=== PATIENT | female | born 1990 | race Caucasian/White ===

== ENCOUNTER 2019-09-30 11:39 | Inpatient (IN) | payer BC ==
[2019-09-30] MEDS ORDERED: Lactated Ringers 1,000 ML IV SCH (12:15)
[2019-09-30] MEDS ORDERED: Nalbuphine 10 MG/ML Syringe IVPUSH PRN (12:15)
[2019-09-30] MEDS ORDERED: Oxytocin/Lactated Ringers 10 UNIT/1,000 ML BAG IV SCH ×2 (12:15→12:30)
[2019-09-30] MEDS ORDERED: Sodium Chloride 0.9% 10 ML Syringe FLUSH PRN (12:15)
[2019-09-30] MEDS ORDERED: Ondansetron 4 MG/2 ML SDV IVPUSH PRN (12:15)
--- NOTE | 2019-09-30 12:15 | PCM.LDHP ---
L&D History of Present Illness - General Date of Service: 09/30/19 Admit Problem/Dx: Admission Diagnosis/Problem Admission Diagnosis/Problem Source of Information: Patient History Limitations: Reports: No Limitations - History of Present Illness Introduction:: Patient is a 29 y/o at 36 6/7 wks who presents with SROM. Occurred at about 0308-1699 this AM. Initially was small in amount. Since arriving in [place] has been larger in amount. Minimal contractions - Related Data Allergies/Adverse Reactions: Allergies Allergy/AdvReac Type Severity Reaction Status Date / Time cefprozil [From Cefzil] Allergy Hives Verified 09/30/19 13:16 Home Medications: Home Meds Hydroxyprogesterone Caproat/Pf [Hydroxyprogest 250 mg/ml Vial] 250 mg IM WEEKLY 09/30/19 [History] Vit/FA/Fe Fumarate/Se [ MTR] 1 tab PO DAILY 09/30/19 [History] Past Medical History Cardiovascular History: Reports: Other (See Below) (Raynaud's) [employer]ACHINE [employer] History: Reports: : 2 Para: 1 LMP (Approximate): - Past Surgical History Musculoskeletal Surgical History: Reports: Other (See Below) (fracture surgery) Social & Family History - Tobacco Use Smoking Status *Q: Never Smoker - Alcohol Use Alcohol Use History: No - Recreational Drug Use Recreational Drug Use: No H&P Review of Systems - Review of Systems: Review Of Systems: See Below General: Reports: No Symptoms Pulmonary: Reports: No Symptoms Cardiovascular: Reports: No Symptoms Gastrointestinal: Reports: No Symptoms Genitourinary: Reports: No Symptoms Musculoskeletal: Reports: No Symptoms Psychiatric: Reports: No Symptoms Neurological: Reports: No Symptoms L&D Exam - Exam Exam: See Below - OB Specific Contraction Intensity: Irritability Movement: Active Heart Tones: Present Heart Tones per Min: 140 Heart Rate (FHR) Variability: Moderate (6-25 bmp) Presentation: Vertex - Exam General: Alert, Oriented, Cooperative Lungs: Clear to Auscultation, Normal Respiratory Effort Cardiovascular: Regular Rate, Regular Rhythm GI/Abdominal Exam: Soft, Non-Tender Genitourinary: Normal external exam Extremities: Normal Inspection Skin: Warm, Dry, Intact - Patient Data Result Diagrams: 09/30/19 12:28 - Problem List (1) 36 weeks gestation of SNOMED Code(s): 24287484 ICD Code: Z3A.36 - 36 WEEKS GESTATION OF Status: Acute Current Visit: Yes (2) SROM (spontaneous rupture of membranes) SNOMED Code(s): 630301609 ICD Code: [id number] - Status: Acute Current Visit: Yes Problem List Initiated/Reviewed/Updated: Yes Assessment/Plan Comment:: * Labs done * GBS negative * SROM was about 8 hours ago. While patient previously wanted to defer pitocin now willing to consider * Pain management per patient preference * Anticipate
--- NOTE | 2019-09-30 17:58 | PCM.DEL ---
L & D Note - General Info Date of Service: 09/30/19 - Delivery Note Labor: Augmented by Oxytocin Delivery Outcome: Livebirth Delivery Method: Spontaneous Vaginal Delivery-Single Delivery Mode: Spontaneous Presentation: Left Occiput Anterior (RUTH) ((Pushing in hands and knees)) Nuchal Cord: None Anesthesia Type: None Amniotic Fluid Description: Clear Episiotomy Type: None Laceration: None Placenta: Intact, Spontaneous Cord: 3 Vessels Estimated Blood Loss: 100 Resuscitation Needed: Yes : Bulb Syringe, Stimulated, Warmed, [place] Used, Warmer Used Delivery Comments (Free Text/Narrative):: Patient found to be complete and began pushing in a hands/knees position. Baby delivered from RUTH presentation. No nuchal cord present. With gentle tractions shoulders and body delivered. handed up to maternal abdomen. Patient then turned to lithotomy. Cord clamped and cut. Cord blood obtained. Placenta allowed time to separate and expelled intact. Inspection of perineum showed no lacerations - General Info Date of Service: 09/30/19 - Patient Data Vitals - Most Recent: Last Vital Signs Temp 37.2 C 09/30/19 12:15 Pulse 83 09/30/19 12:15 Resp 14 09/30/19 12:15 BP 129/82 09/30/19 12:15 Pulse Ox Weight - Most Recent: 75.206 kg Lab Results Last 24 Hours: Laboratory Results - last 24 hr 09/30/19 09/30/19 09/30/19 Range/Units 12:25 12:28 12:28 WBC 10.47 H (3.98-10.04) K/mm3 RBC 4.39 (3.98-5.22) M/mm3 Hgb 13.0 (11.2-15.7) gm/dl Hct 39.4 (34.1-44.9) % MCV 89.7 (79.4-94.8) fl MCH 29.6 (25.6-32.2) pg MCHC 33.0 (32.2-35.5) g/dl RDW Std Deviation 42.9 (36.4-46.3) fL Plt Count 203 (182-369) K/mm3 MPV 9.7 (9.4-12.3) fl COVID-19 (RAJESH) Negative (NEGATIVE) Blood Type A POSITIVE Gel Antibody Screen Negative Med Orders - Current: Current Medications Oxytocin/Lactated Ringer's (Pitocin In Lr 10 Units/1,000 Ml) 10 unit in 1,000 mls @ 500 mls/hr IV .CONTINUOUS ORACIO Lactated Ringer's (Ringers, Lactated) 1,000 mls @ 100 mls/hr IV ASDIRECTED ORACIO Last Admin: 09/30/19 14:46 Dose: 100 mls/hr Documented by: Oxytocin/Lactated Ringer's (Pitocin In Lr 10 Units/1,000 Ml) 10 unit in 1,000 mls @ 12 mls/hr IV TITRATE ORACIO; Protocol Last Titration: 09/30/19 15:45 Dose: 4 munits/min, 24 mls/hr Documented by: Nalbuphine HCl (Nubain) 10 mg IVPUSH Q2H PRN PRN Reason: Pain Ondansetron HCl (Zofran) 4 mg IVPUSH Q4H PRN PRN Reason: Nausea/Vomiting Sodium Chloride (Saline Flush) 10 ml FLUSH ASDIRECTED PRN PRN Reason: Keep Vein Open - Problem List & Annotations (1) 36 weeks gestation of SNOMED Code(s): 54528459 Code(s): Z3A.36 - 36 WEEKS GESTATION OF Status: Acute Current Visit: Yes (2) SROM (spontaneous rupture of membranes) SNOMED Code(s): 051716607 Code(s): KOB8339 - Status: Acute Current Visit: Yes (3) Vaginal delivery SNOMED Code(s): 214255140 Code(s): O80 - ENCOUNTER FOR FULL-TERM UNCOMPLICATED DELIVERY Status: Acute Current Visit: Yes - Problem List Review Problem List Initiated/Reviewed/Updated: Yes - My Orders Last 24 Hours: My Active Orders 09/30/19 Lunch Regular Diet [DIET] 09/30/19 12:15 Patient Status [ADT] Routine Activity as Tolerated [RC] PFP Communication Order [RC] ASDIRECTED Heart Tones [RC] ASDIRECTED Notify Provider [RC] PFP Notify Provider [RC] PRN Peripheral IV Care [RC] . DIRECTED Vital Signs [RC] PER UNIT ROUTINE Lactated Ringers [Ringers, Lactated] 1,000 ml IV ASDIRECTED Nalbuphine [Nubain] 10 mg IVPUSH Q2H PRN Ondansetron [Zofran] 4 mg IVPUSH Q4H PRN Oxytocin/Lactated Ringers [Pitocin in LR 10 Units/1,000 ML] 10 unit in 1,000 ml IV .CONTINUOUS Sodium Chloride 0.9% [Saline Flush] 10 ml FLUSH ASDIRECTED PRN Electronic Heart Tones Ext w TOCO [WOMSER] Routine Electronic Heart Tones Internal [WOMSER] Per Unit Routine Peripheral IV Insertion Adult [OM.PC] Routine Resuscitation Status Routine 09/30/19 12:28 RAPID PLASMA REAGIN,RPR [CHEM] Routine 09/30/19 12:30 Oxytocin/Lactated Ringers [Pitocin in LR 10 Units/1,000 ML] 10 unit in 1,000 ml IV TITRATE 09/30/19 13:18 PATIENT RETYPE [BBK] Routine - Assessment Assessment:: PPD#0 - Plan Plan:: * Routine cares * Breast feeding * Discharge home in 1-2 days
[2019-09-30] MEDS ORDERED: Docusate Sodium 100 MG Cap PO PRN (19:47)
[2019-09-30] MEDS ORDERED: Benzocaine/Menthol 20%-0.5% Spray 56 GM Canister TOP PRN (19:47)
[2019-09-30] MEDS ORDERED: Witch Hazel Medicated Pads 40/Jar TOP PRN (19:47)
[2019-09-30] MEDS ORDERED: Acetaminophen 325 MG Tab PO PRN (19:47)
[2019-09-30] MEDS ORDERED: Ibuprofen 600 MG Tab PO PRN (19:47)
--- NOTE | 2019-10-01 01:45 | PCM.PNPP ---
- General Info Date of Service: 10/01/19 Functional Status: Reports: Pain Controlled, Tolerating Diet, Ambulating, Urinating - Review of Systems General: Reports: No Symptoms Pulmonary: Reports: No Symptoms Cardiovascular: Reports: No Symptoms Gastrointestinal: Reports: No Symptoms Genitourinary: Reports: No Symptoms Musculoskeletal: Reports: No Symptoms Neurological: Reports: No Symptoms Psychiatric: Reports: Other (tearful with baby in Level 2) - Patient Data Vital Signs - Most Recent: Last Vital Signs Temp 36.9 C 09/30/19 21:05 Pulse 89 09/30/19 21:05 Resp 16 09/30/19 21:05 BP 108/66 09/30/19 21:05 Pulse Ox 98 09/30/19 21:05 Weight - Most Recent: 75.206 kg I&O - Last 24 Hours: Intake & Output 09/30/19 09/30/19 10/01/19 14:59 22:59 06:59 Intake Total 1500 Balance 1500 Lab Results - Last 24 Hours: Laboratory Results - last 24 hr 09/30/19 09/30/19 09/30/19 Range/Units 12:25 12:28 12:28 WBC 10.47 H (3.98-10.04) K/mm3 RBC 4.39 (3.98-5.22) M/mm3 Hgb 13.0 (11.2-15.7) gm/dl Hct 39.4 (34.1-44.9) % MCV 89.7 (79.4-94.8) fl MCH 29.6 (25.6-32.2) pg MCHC 33.0 (32.2-35.5) g/dl RDW Std Deviation 42.9 (36.4-46.3) fL Plt Count 203 (182-369) K/mm3 MPV 9.7 (9.4-12.3) fl COVID-19 (RAJESH) Negative (NEGATIVE) Blood Type A POSITIVE Gel Antibody Screen Negative Med Orders - Current: Current Medications Acetaminophen (Tylenol) 650 mg PO Q4H PRN PRN Reason: mild pain or fever Benzocaine/Menthol (Dermoplast Pain Relief [place]) 0 gm TOP ASDIRECTED PRN PRN Reason: Perineal Comfort Measure Last Admin: 09/30/19 20:18 Dose: 1 applic Documented by: Docusate Sodium (Colace) 100 mg PO BID PRN PRN Reason: Constipation Last Admin: 09/30/19 21:06 Dose: 100 mg Documented by: Ibuprofen (Motrin) 600 mg PO Q6H PRN PRN Reason: Mild pain or fever Witch Isadora (Tucks) 1 pad TOP ASDIRECTED PRN PRN Reason: Perineal Comfort Measure Last Admin: 09/30/19 20:18 Dose: 1 applic Documented by: Discontinued Medications Oxytocin/Lactated Ringer's (Pitocin In Lr 10 Units/1,000 Ml) 10 unit in 1,000 mls @ 500 mls/hr IV .CONTINUOUS ORACIO Lactated Ringer's (Ringers, Lactated) 1,000 mls @ 100 mls/hr IV ASDIRECTED ORACIO Last Admin: 09/30/19 14:46 Dose: 100 mls/hr Documented by: Oxytocin/Lactated Ringer's (Pitocin In Lr 10 Units/1,000 Ml) 10 unit in 1,000 mls @ 12 mls/hr IV TITRATE ORACIO; Protocol Last Titration: 09/30/19 15:45 Dose: 4 munits/min, 24 mls/hr Documented by: Nalbuphine HCl (Nubain) 10 mg IVPUSH Q2H PRN PRN Reason: Pain Ondansetron HCl (Zofran) 4 mg IVPUSH Q4H PRN PRN Reason: Nausea/Vomiting Sodium Chloride (Saline Flush) 10 ml FLUSH ASDIRECTED PRN PRN Reason: Keep Vein Open - Infant Interaction Infant Disposition, : [place] to Nursery Infant Interaction: To Nursery to Visit Support Person: - Recovery Exam Fundal Tone: Firm Fundal Level: 1 Fingerbreadths Below Umbilicus Fundal Placement: Midline Lochia Amount: Small Lochia Color: Rubra/Red Perineum Description: Intact, Minimal Bruising/Swelling Bladder Status: Voiding - Exam General: Alert, Oriented, Cooperative GI/Abdominal Exam: Soft, Non-Tender Extremities: Normal Inspection - Problem List & Annotations (1) 36 weeks gestation of SNOMED Code(s): 95994746 Code(s): Z3A.36 - 36 WEEKS GESTATION OF Status: Acute (2) SROM (spontaneous rupture of membranes) SNOMED Code(s): 896430388 Code(s): GMW1523 - Status: Acute (3) Vaginal delivery SNOMED Code(s): 808515251 Code(s): O80 - ENCOUNTER FOR FULL-TERM UNCOMPLICATED DELIVERY Status: Acute - Problem List Review Problem List Initiated/Reviewed/Updated: Yes - My Orders Last 24 Hours: My Active Orders 09/30/19 12:15 Resuscitation Status Routine 09/30/19 12:28 RAPID PLASMA REAGIN,RPR [CHEM] Routine 09/30/19 Dinner Regular Diet [DIET] 09/30/19 19:47 Acetaminophen [Tylenol] 650 mg PO Q4H PRN Benzocaine/Menthol [Dermoplast Pain Relief [place]] See Dose Instructions TOP ASDIRECTED PRN Docusate Sodium [Colace] 100 mg PO BID PRN Ibuprofen [Motrin] 600 mg PO Q6H PRN witch Isadora [Tucks] 1 pad TOP ASDIRECTED PRN Heat Therapy [OM.PC] PRN 09/30/19 19:47 Activity as Tolerated [RC] PER UNIT ROUTINE Vital Signs [RC] 03,09,15,21 Assess Lochia [WOMSER] Per Unit Routine Assess Uterine Involution [WOMSER] Per Unit Routine Breast Pump [WOMSER] Per Unit Routine Ice Therapy [OM.PC] Per Unit Routine Perineal Care [OM.PC] Per Unit Routine Peripheral IV Discontinue [OM.PC] Routine Sitz Bath [OM.PC] Per Unit Routine 10/01/19 19:47 Heat Therapy [OM.PC] PRN - Assessment Assessment:: PPD#1 - Plan Plan:: * Baby is needing to be transferred to higher level of care for respiratory distress. Will discharge pt as well. Gave support and encouraged her to call with any concerns.
--- NOTE | 2019-10-01 01:45 | PCM.DCSUM1 ---
Discharge Summary - Discharge Data Discharge Date: 10/01/19 Discharge Disposition: Home, Self-Care 01 Condition: Good - Referral to Home Health Primary Care Physician: Dominique Alvarado MD - Discharge Diagnosis/Problem(s) (1) 36 weeks gestation of SNOMED Code(s): 13903458 ICD Code: Z3A.36 - 36 WEEKS GESTATION OF Status: Acute (2) SROM (spontaneous rupture of membranes) SNOMED Code(s): 952113437 ICD Code: KFA0348 - Status: Acute (3) Vaginal delivery SNOMED Code(s): 129047304 ICD Code: O80 - ENCOUNTER FOR FULL-TERM UNCOMPLICATED DELIVERY Status: Acute - Patient Summary/Data Complications: None Consults: None Recommended Follow-up Testing/Procedures: Follow up in 3 weeks for check Hospital Course: 29 y/o at 36 6/7 wks presented with SROM. Was augmented with pitocin. Underwent . See delivery note. was discharged on PPD#1 - Patient Instructions Diet: Regular Diet as Tolerated Activity: As Tolerated Activity, Other: Pelvic rest for 6 weeks Driving: May Drive Today Showering/Bathing: May Shower Showering/Bathing, Other: May Bathe Notify Provider of: Fever, Increased Pain, Swelling and Redness, Drainage, Nausea and/or Vomiting - Discharge Plan *PRESCRIPTION DRUG MONITORING PROGRAM REVIEWED*: No *COPY OF PRESCRIPTION DRUG MONITORING REPORT IN PATIENT CROW: No Home Medications: Home Meds Vit/FA/Fe Fumarate/Se [ MTR] 1 tab PO DAILY 09/30/19 [History] Ibuprofen [Motrin] 600 mg PO Q6H PRN tablet 10/01/19 [Rx] Patient Handouts: Care After Vaginal Delivery Referrals: Dominique Alvarado MD [Primary Care Provider] - (3 weeks for check - can be telehealth appt from home) - Discharge Summary/Plan Comment DC Time >30 min.: No - Patient Data Vitals - Most Recent: Last Vital Signs Temp 36.9 C 09/30/19 21:05 Pulse 89 09/30/19 21:05 Resp 16 09/30/19 21:05 BP 108/66 09/30/19 21:05 Pulse Ox 98 09/30/19 21:05 Weight - Most Recent: 75.206 kg I&O - Last 24 hours: Intake & Output 09/30/19 09/30/19 10/01/19 14:59 22:59 06:59 Intake Total 1500 Balance 1500 Lab Results - Last 24 hrs: Laboratory Results - last 24 hr 09/30/19 09/30/19 09/30/19 Range/Units 12:25 12:28 12:28 WBC 10.47 H (3.98-10.04) K/mm3 RBC 4.39 (3.98-5.22) M/mm3 Hgb 13.0 (11.2-15.7) gm/dl Hct 39.4 (34.1-44.9) % MCV 89.7 (79.4-94.8) fl MCH 29.6 (25.6-32.2) pg MCHC 33.0 (32.2-35.5) g/dl RDW Std Deviation 42.9 (36.4-46.3) fL Plt Count 203 (182-369) K/mm3 MPV 9.7 (9.4-12.3) fl COVID-19 (RAJESH) Negative (NEGATIVE) Blood Type A POSITIVE Gel Antibody Screen Negative Med Orders - Current: Current Medications Acetaminophen (Tylenol) 650 mg PO Q4H PRN PRN Reason: mild pain or fever Benzocaine/Menthol (Dermoplast Pain Relief [place]) 0 gm TOP ASDIRECTED PRN PRN Reason: Perineal Comfort Measure Last Admin: 09/30/19 20:18 Dose: 1 applic Documented by: Docusate Sodium (Colace) 100 mg PO BID PRN PRN Reason: Constipation Last Admin: 09/30/19 21:06 Dose: 100 mg Documented by: Ibuprofen (Motrin) 600 mg PO Q6H PRN PRN Reason: Mild pain or fever Witch Vanessa (Tucks) 1 pad TOP ASDIRECTED PRN PRN Reason: Perineal Comfort Measure Last Admin: 09/30/19 20:18 Dose: 1 applic Documented by: Discontinued Medications Oxytocin/Lactated Ringer's (Pitocin In Lr 10 Units/1,000 Ml) 10 unit in 1,000 mls @ 500 mls/hr IV .CONTINUOUS ORACIO Lactated Ringer's (Ringers, Lactated) 1,000 mls @ 100 mls/hr IV ASDIRECTED ORACIO Last Admin: 09/30/19 14:46 Dose: 100 mls/hr Documented by: Oxytocin/Lactated Ringer's (Pitocin In Lr 10 Units/1,000 Ml) 10 unit in 1,000 m ls @ 12 mls/hr IV TITRATE ORACIO; Protocol Last Titration: 09/30/19 15:45 Dose: 4 munits/min, 24 mls/hr Documented by: Nalbuphine HCl (Nubain) 10 mg IVPUSH Q2H PRN PRN Reason: Pain Ondansetron HCl (Zofran) 4 mg IVPUSH Q4H PRN PRN Reason: Nausea/Vomiting Sodium Chloride (Saline Flush) 10 ml FLUSH ASDIRECTED PRN PRN Reason: Keep Vein Open
== END 2019-10-01 05:40 | disposition home or self-care (01) | DRG 560 ==
LOC: JD.OBCHECK 11:39 → JD.OB 11:40 → JD.OBCHECK 12:14 → JD.OB 12:15 → OBSVTOIN 17:36 → JD.OB 17:57
PROVIDERS: ADMIT Obstetrics & Gynecology; ATTEND Obstetrics & Gynecology
PROC: 10E0XZZ Delivery of Products of Conception, External Approach (ICD-10-PCS; principal; 2019-09-30)
DX: O60.14X0 Preterm labor third trimester with preterm delivery third trimester, not applicable or unspecified (principal); Z37.0 Single live birth; Z3A.36 36 weeks gestation of pregnancy; Z11.59 Encounter for screening for other viral diseases
CPT/HCPCS: 36415; 59025; 59409; 85027; 86592; 86850; 86900; 86901; A9270-GY; J2590; J7120; U0002

== ENCOUNTER 2022-03-28 06:26 | Inpatient (IN) | payer BC ==
[2022-03-28] MEDS ORDERED: Nalbuphine 10 MG/0.5 ML Syringe IVPUSH PRN (06:36)
[2022-03-28] MEDS ORDERED: Ondansetron 4 MG Tab.DIS PO PRN (06:36)
[2022-03-28] MEDS ORDERED: Sodium Chloride 0.9% 10 ML Syringe FLUSH PRN (06:36)
[2022-03-28] MEDS ORDERED: Ondansetron 4 MG/2 ML SDV IVPUSH PRN (06:36)
[2022-03-28] MEDS ORDERED: Lactated Ringers 1,000 ML IV SCH (06:45)
[2022-03-28] MEDS ORDERED: Lidocaine 1% 50 ML MDV INJECT PRN (07:34)
[2022-03-28] MEDS ORDERED: Oxytocin/Lactated Ringers 10 UNIT/1,000 ML BAG IV SCH (07:45)
[2022-03-28] MEDS ORDERED: Sodium Chloride 0.9% 10 ML Syringe FLUSH SCH (09:00)
[2022-03-28] MEDS ORDERED: Benzocaine/Menthol 20%-0.5% Spray 78 GM Cannister TOP PRN (10:21)
[2022-03-28] MEDS ORDERED: Acetaminophen 325 MG Tab PO PRN (10:21)
[2022-03-28] MEDS ORDERED: Witch Hazel Medicated Pads 40/Jar TOP PRN (10:21)
[2022-03-28] MEDS ORDERED: Docusate Sodium 100 MG Cap PO PRN (10:21)
[2022-03-28] MEDS: Ibuprofen 600 MG Tab PO PRN ×3 (11:50→21:09)
[2022-03-29] MEDS: Ibuprofen 600 MG Tab PO PRN ×2 (04:03→08:46)
[2022-03-29] MEDS ORDERED: Prenatal Multivitamin with Calcium/Folic Acid/Iron Tab PO SCH (09:00)
== END 2022-03-29 11:35 | disposition home or self-care (01) | DRG 560 ==
LOC: JD.OBCHECK 06:26 → JD.OB 06:37 → JD.OBCHECK 07:34 → OBSVTOIN 09:36 → JD.OB 09:37
PROVIDERS: ADMIT Obstetrics & Gynecology; ATTEND Obstetrics & Gynecology
PROC: 10E0XZZ Delivery of Products of Conception, External Approach (ICD-10-PCS; principal; 2022-03-28)
PROC: 0KQM0ZZ Repair Perineum Muscle, Open Approach (ICD-10-PCS; 2022-03-28)
DX: O69.81X0 Labor and delivery complicated by cord around neck, without compression, not applicable or unspecified (principal); Z37.0 Single live birth; O70.1 Second degree perineal laceration during delivery; Z3A.39 39 weeks gestation of pregnancy; Z88.1 Allergy status to other antibiotic agents
CPT/HCPCS: 36415; 59025; 59409; 85025; 86592; A9270-GY